=== PATIENT | male | born 1965 | race Caucasian/White ===

== ENCOUNTER 2025-07-13 21:19 | Emergency (ER) | payer SELFPAY ==
[2025-07-13] MEDS ORDERED: Boostrix 0.5 ML (Tdap) VIAL (>/=7 yrs of age) ONE (21:58)
[2025-07-13] MEDS ORDERED: Lidocaine 1% w/Epinephrine 1:100K 20 ML VIAL ONE (21:58)
== END 2025-07-13 23:11 | disposition home or self-care (01) ==
LOC: ERS 21:19
DX: S81.812A Laceration without foreign body, left lower leg, initial encounter (principal); Z23 Encounter for immunization; W26.0XXA Contact with knife, initial encounter
CPT/HCPCS: 12002; 90471; 90715